=== PATIENT | female | born 1980 | race Caucasian/White ===

== ENCOUNTER 2024-10-12 13:46 | Emergency (ER) | payer SELFPAY ==
[2024-10-12 13:48] VITALS: BP 106/86; PULSE 89; RESP 18; TEMP 37; O2SAT 98; BMI 22.9
--- NOTE | 2024-10-12 14:04 | EKG12_ITS ---
Test Reason : CP Blood Pressure : */* mmHG Vent. Rate : 86 BPM Atrial Rate : 86 BPM P-R Int : 140 ms QRS Dur : 80 ms QT Int : 352 ms P-R-T Axes : 65 102 66 degrees QTcB Int : 421 ms Normal sinus rhythm Rightward axis Borderline ECG Confirmed by HUMBLE FREY, LON ([id number]), photographic editor ANA KIM ([id number]) on 10/13/2024 1:32:14 PM Referred By: UG/TL Confirmed By: LON KATE MD
[2024-10-12 15:05] VITALS: BP 103/88; PULSE 79; RESP 19; O2SAT 99
[2024-10-12 15:05] LABS: Absolute Lymphocyte Count 2.43 X10^3/uL (0.83-4.51); Absolute Neutrophil Count 8.8 X10^3/uL (2.0-7.7); Basophil# 0.09 X10^3/uL; Basophil% 0.7 % (0-1); Eosinophils% 0.8 % (0-5); Hematocrit 33.1 % (37-47); Hemoglobin 11.6 g/dL (12.0-15.0); Lymphocyte # 2.43 X10^3/ul (0.83-4.51); Lymphocyte % 19.7 % (19-41); Mean Corpuscular Hgb 31.8 pg (27.0-32.0); Mean Corpuscular Volume 90.7 fL (81-99); Monocyte# 0.88 X10^3/uL; Monocyte% 7.1 % (0-10); NRBC Flagged by Analyzer 0 % (0-5); Neutrophil # 8.81 X10^3/uL (2.7-7.7); Neutrophil % 71.3 % (47-70); Platelet Count 379 K/mm3 (150-450); RBC Distribution Width CV 14.6 % (11.6-14.6); RBC Distribution Width SD 48.6 fl (35.1-43.9); Red Blood Count 3.65 M/mm3 (4.2-5.4); White Blood Count 12.4 K/mm3 (4.4-11.0)
--- NOTE | 2024-10-12 15:10 | RAD_ITS ---
PROCEDURE: CHEST 1 VIEW (PORTABLE) 10/12/2024 REASON FOR EXAM: CHEST PAIN TECHNIQUE: Frontal view of the chest. COMPARISON: None. FINDINGS: Hardware: None. Heart: The heart size is normal. Lungs: No focal consolidation, pleural effusion or pneumothorax. Bones: The bones are unremarkable. RAD/Chest 1 View (Portable) IMPRESSION: Negative Chest. Reading Location: [id number]
[2024-10-12 15:15] VITALS: BP 99/65; PULSE 78; RESP 29; O2SAT 98
--- NOTE | 2024-10-12 15:35 | EDS_ITS ---
HPI History of Present Illness Chief Complaint: Chest Pain Informant: patient Onset/Context/Timing Onset: Today Activity at onset: gradual Timing: Intermittent Quality: Positive for Sharp Location: Left Parasternal Worsened By: Nothing Relieved By: Nothing Associated Symptoms: Positive for Dyspnea, Lightheadedness and Palpitations; Negative for Nausea, Vomiting, Diaphoresis, Cough, Fever or Acid Reflux Narrative Narrative: Patient presents with chest pain that began today. Patient states it came on gradually. Patient states that has been intermittent and last 1 to 2 minutes. Patient describes it as sharp. Patient states it is over the left parasternal area. Patient states nothing makes it better and nothing makes it worse. Brought him into some lightheadedness and palpitations with it. Patient admits to some slight shortness of breath. Patient denies any nausea or vomiting. Patient denies any cough or fevers. CVD Risk Factors: Positive for Family History 1' </=55 (Grandfather with heart disease at age 50); Negative for Hypertension, Diabetes, Hypercholesterolemia or Smoking PE Risk Factors: Negative for Recent Travel/Surgery, Recent Immobilization, Prior DVT or PE, Cancer or OCP + Smoking + >/=35 PFSH PFSH Medical History (Updated 10/12/24 @ 17:[address] Ayo Rowland DO) Physical exam, pre-employment Medical History no medical history Allergy/AdvReac Type Severity Reaction Status Date / Time No Known Allergies Allergy Verified 10/12/24 13:48 Surgical History (Updated 10/12/24 @ 15:[address] Ayo Rowland DO) Hx of tubal ligation Social History Smoking Status: Current every day smoker tobacco type: cigarettes ROS ROS ED Constitutional Constitutional ED: Denies chills or fever(s) Eyes Eyes: Denies blurry vision or change in vision ENT ENT ED: Denies rhinorrhea or sore throat Cardiovascular Cardiovascular: Reports as per HPI, chest pain, palpitations and racing h eartbeat Respiratory/Chest Respiratory/Chest: Reports dyspnea; Denies cough Gastrointestinal Gastrointestinal: Denies nausea or vomiting Genitourinary Genitourinary ED: Denies dysuria or hematuria Musculoskeletal Musculoskeletal: Reports back pain; Denies neck pain Integumentary Denies abscess or rash Neurologic Neurologic: Denies headache(s) or weakness Allergic/Immunologic Allergic/Immunologic ED: Denies mouth swelling or urticaria EXAM Physical Exam Const Vital Signs: 10/12/24 13:48 10/12/24 15:04 10/12/24 15:05 Temperature 98.6 F Temperature Source Oral Pulse Rate 89 79 Respiratory Rate 18 19 H Respiratory Effort Blood Pressure 106/86 H 103/88 H Blood Pressure Mean 92 93 Pulse Ox 98 99 Oxygen Delivery Method Room Air Room Air Room Air 10/12/24 15:07 10/12/24 15:15 10/12/24 16:00 Temperature Temperature Source Pulse Rate 78 84 Respiratory Rate 29 H 18 Respiratory Effort Normal Non-Labored Blood Pressure 99/65 100/60 Blood Pressure Mean 76 73 Pulse Ox 98 100 Oxygen Delivery Method Room Air 10/12/24 17:00 Temperature Temperature Source Pulse Rate 76 Respiratory Rate 15 Respiratory Effort Blood Pressure 107/70 Blood Pressure Mean 81 Pulse Ox 99 Oxygen Delivery Method Positive well nourished and well developed Constitutional Narrative: BMI is 23.0 General Appearance ED: well developed and NAD HEENT Reports moist mucous membranes normocephalic and atraumatic Neck supple and no JVD Resp normal respiratory effort and clear to auscultation bilaterally Cardio regular rate and regular rhythm GI soft to palpation, non-tender and non-distended Extremity normal to inspection General Extremety ED: Negative for edema or tenderness General Extremity: Negative for edema Neuro oriented x3, CN's II-XII intact bilaterally and no sensory deficits noted Sensorium / Orientation: awake and alert Motor Exam: strength 5/5 throughout Psych mental status grossly normal Heart Score History: Slightly/Non-Suspicious ECG: Normal Age: </= 45 years Risk Factors: 1 or 2 Risk Factors Troponin: </= Normal Limit Score: 1 MDM MDM MDM Narrative Medical decision making narrative: Differential diagnosis includes cardiac dysrhythmia, cardiac ischemia, electrolyte abnormality, pneumonia, pneumothorax, dehydration, gastroesophageal reflux disease, anxiety, and musculoskeletal pain. EKG will be obtained to assess for cardiac dysrhythmia and cardiac ischemia. Chest x-ray will be obtained to assess for pneumonia and pneumothorax. CBC will be obtained to assess for leukocytosis and anemia. Basic metabolic profile will be obtained to assess for electrolyte abnormality and renal function. High-sensitivity troponin will be obtained to assess for cardiac ischemia. 2-hour repeat high- sensitivity troponin will be obtained to assess for ongoing cardiac ischemia. Lab Data Attestation: I reviewed the patient's lab results. Lab results narrative: CBC was reviewed. There is a slight leukocytosis of 12.4. There is a mild anemia with a hemoglobin of 11.6 and hematocrit of 33.1. Platelets were normal. Basic metabolic profile was reviewed and was within normal limits. Initial high-sensitivity troponin was reviewed and was normal at less than 6. 2-hour repeat high-sensitivity troponin was also less than 6. Labs: Laboratory Results - last 24 hr 10/12/24 10/12/24 14:12 16:20 WBC 12.4 H RBC 3.65 L Hgb 11.6 L Hct 33.1 L MCV 90.7 MCH 31.8 MCHC 35.0 RDW Std Deviation 48.6 H RDW Coeff of [place] 14.6 Plt Count 379 MPV 10.0 Immature Gran % (Auto) 0.400 Neut % (Auto) 71.3 H Lymph % (Auto) 19.7 [place] % (Auto) 7.1 Eos % (Auto) 0.8 Baso % (Auto) 0.7 Absolute Neuts (auto) 8.8 H Absolute Lymphs (auto) 2.43 Nucleated RBC % 0 Sodium 136 Potassium 3.8 Chloride 102 Carbon Dioxide 21.7 Anion Gap 12 BUN 17 Creatinine 0.64 L Estim Creat Clear Calc 114.33 Est GFR (MDRD) Non-Af 112 BUN/Creatinine Ratio 25.8 H Glucose 82 Calcium 9.6 Troponin T High Sens < 6 Troponin T Hi Sens 2 Hr < 6 Radiography Chest X-Ray - ED: 1 View, Read by ED Physician, Read by Radiologist and No Acute Disease Diagnostic Testing: Clinical Impression(s) from Imaging Studies Chest X-Ray 10/12/24 15:10 IMPRESSION: Negative Chest. Reading Location: [facility] Portable 1 view chest x-ray was obtained. On my independent interpretation, lung deshpande are clear. There is normal cardiac silhouette. Bony thorax is normal. There is no acute process noted. Radiologist also interpreted the x- ray and agrees. EKG Initial EKG: Attestation: I personally reviewed and interpreted this EKG as follows: Interpretation: Sinus Rhythm (86) and No Acute Injury Pattern Comments: EKG was obtained. On my independent interpretation, it showed a normal sinus rhythm with a rate of 86. [place] interval, QRS interval, and QTc intervals were all normal. [place] was borderline right axis deviation at 102. There are no acute ST or T wave changes. Prior EKG tracings: not available for review Prior: No Prior Treatment and Re-Evaluation :: Patient was given aspirin here. Patient was advised of her findings. Patient is feeling better on reevaluation. Patient has a HEART score of 1. Patient was advised that this is low risk for acute cardiac event. Patient was advised that this could be musculoskeletal in nature. Patient was instructed to follow-up with her primary care physician in 5 to 7 days. Patient was instructed to stop smoking. Patient was instructed to return if worse in any way. Patient understood and was agreeable with the plan. All questions were answered. Discharge Plan Triage Chief Complaint: Chest Pain ED Provider: Ayo Rowland Dx/Rx/DC Orders Clinical Impression: Chest pain, Tobacco use Instructions: ED Chest Pain, Uncertain Cause Primary Care Provider: Care Physician,No Primary Referrals: Chaitanya Maynard MD [Med Staff - Active Staff] - 5-7 Days Care Physician,No Primary [Primary Care Provider] - Print Language: Spanish Disposition Disposition: Home, Self Care
[2024-10-12 15:36] LABS: Anion Gap 12 (5-15); BUN 17 mg/dL (4-19); BUN/Creat Ratio 25.8 RATIO (10-20); Calcium,Total 9.6 mg/dL (7.6-11.0); Carbon Dioxide 21.7 mmol/L (21.0-32.0); Chloride 102 mmol/L (98-108); Creatinine, Serum 0.64 mg/dL (0.70-1.20); EST Glomerular Filtration Rate 112 (>60); Estimated Creatinine Clearance 114.33 ml/min (50-250); Glucose 82 mg/dL (70-99); Potassium 3.8 mmol/L (3.3-5.1); Sodium Level 136 mmol/L (133-145); Troponin T High Sensitivity < 6 ng/L (<=14)
[2024-10-12 16:00] VITALS: BP 100/60; PULSE 84; RESP 18; O2SAT 100
[2024-10-12] MEDS: Aspirin 81 MG TAB.CHEW 324 MG PO (16:15)
[2024-10-12 17:00] VITALS: BP 107/70; PULSE 76; RESP 15; O2SAT 99
[2024-10-12 17:00] LABS: Troponin T High Sens 2 HR < 6 ng/L (<=14)
[2024-10-12 17:27] VITALS: BP 107/76; PULSE 72; RESP 18; TEMP 36.8; O2SAT 100
== END 2024-10-12 17:28 | disposition home or self-care (01) ==
PROVIDERS: Emergency Provider Emergency Medicine; Visit Provider Emergency Medicine
DX: R07.9 Chest pain, unspecified (principal); F17.210 Nicotine dependence, cigarettes, uncomplicated
CPT/HCPCS: 36415; 71045; 80048; 84484; 85025; 93005; 99284; A4216